=== PATIENT | male | born 1995 | race Hispanic/Latino ===

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

== ENCOUNTER 2017-04-13 10:10 | Emergency (ER) | payer OTHER ==
[~2017-04-13] VITALS: Ht 172.7 cm; Wt 61.4 kg
[2017-04-13 10:13] VITALS: BP 121/80; PULSE 92; RESP 14; O2SAT 99
--- NOTE | 2017-04-13 10:19 | ED.REPORT ---
HPI-General Illness Date of Service Apr 13, 2017 ED Provider: Dr. Grier The pt is a 22 y/o male with a hx of asthma who presents to the ED complaining of dehydration, onset yesterday after he walked 8 miles. Associated sx include headache, lightheadedness, nausea and subjective fever which resolved today. He also reports mild cough and congestion since last night. He denies vomiting , diarrhea, abdominal pain, chest pain, shortness of breath, loss of consciousness , neck pain and photophobia. Nursing Notes Stated Complaint: DEHYDRATED AND FEVER Chief Complaint: General Complaint Nursing Notes Reviewed: Yes Allergies: Coded Allergies: sulfamethoxazole (Verified Allergy, Intermediate, Rash,Itching,SOB, 12/25/16 ) trimethoprim (Verified Allergy, Intermediate, Rash,Itching,SOB, 04/17/16) Scheduled PRN Ibuprofen (Ibuprofen) 800 Mg Tablet 800 MG PO TID PRN PRN For Pain General Time Seen by MD: 10:43 Chief Complaint Other (dehydration) Hx Obtained From: Patient Arrived By: Walk-in Sudden in Onset?: Yes Onset Occurred: Yesterday Symptom Duration: Since onset Location: : Head Quality: Painful Severity: Current: Mild Severity: Maximum: Mild Recent Healthcare: No recent doctor visit Similar Sx Previous: No Past Medical History Past Medical History Bronchitis Reports: Asthma Past Surgical History None Smoking History Never Smoker Social History Alcohol Use: Denies alcohol use Drug Use: Denies drug use Other Social History: Lives with parents Ambulatory Status Independent Review of Systems Reports: dehydration Reports: congestion Full Review of Systems Constitutional: Reports: Fever (subjective, now resolved) Eyes: Denies: Photophobia Respiratory: Reports: Non-productive cough, Denies: Shortness of breath Cardiovascular: Denies: Chest pain GI: Reports: Nausea, Denies: Abdominal pain, Diarrhea, Vomiting Musculoskeletal: Denies: Neck pain Neurologic: Reports: Headache, Lightheaded, Denies: Change LOC Complete sys rev & neg: except as marked. Physical Exam Vital Signs Vital Signs Date Time Temp Pulse Resp B/P Pulse Ox O2 Delivery O2 Flow Rate FiO2 04/13/17 13:32 36.7 16 107/60 98 Room Air 04/13/17 10:13 36.9 92 14 121/80 99 Room Air Initial VS: Reviewed Head / Eyes: Atraumatic, Normocephalic Neck: Supple, Non-tender, Full range of motion Cardiovascular: Regular rate & rhythm, Heart sounds normal, Intact distal pulses Abdomen / GI: Soft, Non-tender, No guarding, No rebound, No distention Extremities: Vascular intact, Neuro intact, No swelling, No tenderness Skin: Warm, Dry, No cyanosis Neurologic: Alert, Oriented, Nonfocal General/Constitutional: Awake, Alert, No acute distress, Cooperative Respiratory / Chest: Atraumatic, Breath sounds = bilat, No respiratory distress , No rales, No rhonchi, No wheezing Slightly diminished breath sounds at the right base. Interpretation & Diagnostics Lab Results Interpretation Result Diagram: 04/13/17 1110 04/13/17 1110 Test 04/13/17 11:10 04/13/17 12:42 White Blood Count 5.9th/mm3 (3.8-10.1) Red Blood Count 5.04mil/mm3 (4.40-5.80) Hemoglobin 14.2g/dL (13.8-17.2) Hematocrit 41.3% (41.0-50.0) Mean Corpuscular Volume 81.9fL (81-100) Mean Corpuscular Hemoglobin 28.2pg (27.0-35.0) Mean Corpuscular Hemoglobin Concent 34.4% (32.0-37.0) Red Cell Distribution Width 12.7% (12.3-15.4) Platelet Count 201bil/L (150-400) Neutrophils (%) (Auto) 65.2% (40-74) Lymphocytes (%) (Auto) 20.8% (14-46) Monocytes (%) (Auto) 13.3% (4-12) Eosinophils (%) (Auto) 0.2% (0-5) Basophils (%) (Auto) 0.5% (0-3) Sodium Level 136mEq/L (134-144) Potassium Level 3.6mEq/L (3.5-5.2) Chloride Level 96mEq/L (97-108) Carbon Dioxide Level 23mmol/L (18-29) Blood Urea Nitrogen 20mg/dL (6-20) Creatinine 0.76mg/dL (0.76-1.27) Estimat Glomerular Filtration Rate 139mL/min (>59) Glucose Level 80mg/dL (60-99) Calcium Level 9.4mg/dL (8.5-10.1) Total Bilirubin 1.5mg/dL (0.0-1.2) Aspartate Amino Transf (AST/SGOT) 16U/L (0-50) Alanine Aminotransferase (ALT/SGPT) 16U/L (0-44) Alkaline Phosphatase 68U/L (25-150) Total Protein 8.0g/dL (6.4-8.4) Albumin 4.9g/dL (3.4-5.0) Hold Urine Received (Received) X-Ray Chest Interpretation Chest Xray Interpretation: IMPRESSION: No acute pulmonary process. Dictated by: Jessika Jackson M.D. on 04/13/2017 at 11:09 Approved by: Jessika Jackson M.D. on 04/13/2017 at 11:09 View: Portable, 1 view Interpretation / Wet Read by: Interpret - Radiologist Re-Eval/Medical Decision Med Decision/Clinical Course 22-year-old male presenting feeling dehydrated. He reports he went for a long walk in [place] yesterday without any hydration was feeling lightheaded now. He was given 1 L normal saline and felt much better. He reported a mild cough CXR is clear. Labs are unremarkable. Discharged home with return precautions. Time of Eval: 10:46 Re-Evaluation/Progress Note: Discussed the plan to do IV fluids and take a chest xray. The pt understands and agrees with the plan. All questions answered. Time of Eval: 12:59 Patient Status: Condition improved Re-Evaluation/Progress Note: Rechecked pt. Discussed lab results, imaging results, diagnosis and plan to discharge. Pt understands and agrees with the plan. F/U instruction and RTER warning given. All questions addressed. Counseled Regarding: Diagnosis, Lab results, Need for follow-up, When/why to return to ED Discharge & Departure Primary Impression: Dehydration Disposition: Home Discharge Condition All VS Reviewed: Yes Condition: Stable Patient Instructions: Dehydration (ED) Additional Instructions: Your lab results and imaging results are reassuring. Drink plenty of fluids, including drinks like Gatorade. Follow up with your primary care provider for further evaluation if needed. Return to the emergency department in case of lightheadedness, vomiting, or any new or concerning symptoms. Referrals: Venu Sanchez MD (PCP) Scribe Attestation Portions of this note were transcribed by Keyshawn Manning. I,, personally performed the history,physical exam and medical decision-making;I reviewed and confirmed the accuracy of the information in the transcribed note. Signed by Peewee Robles. 04/12/17 copies to: Venu Sanchez MD, Ben M MD Apr 13, 2017 10:19 Keyshawn Manning Apr 13, 2017 10:46
[2017-04-13] MEDS ORDERED: 0.9% Sodium Chloride 1,000 ML IV ONE (10:47)
[2017-04-13] MEDS ORDERED: Ondansetron 2 mg/mL 2 mL Inj IVPUSH PRN (10:50)
--- NOTE | 2017-04-13 11:11 | DRSVH ---
PROCEDURE: X-RAY CHEST ONE VIEW, PORTABLE ([id number]) INDICATIONS: cough TECHNIQUE: One view of the chest was acquired. COMPARISON: [facility], CR, XR CHEST 2VW, 11/06/2016, 10:15. [facility], CR, XR CHEST 2VW, 04/17/2016, 23:30. FINDINGS: Surgical changes and devices: None. Lungs and pleura: No pleural effusions or pneumothorax. Lungs are clear. Mediastinum: Mediastinal contours appear normal. Heart size is normal. Bones and chest wall: No suspicious bony lesions. Overlying soft tissues appear unremarkable. IMPRESSION: No acute pulmonary process. Dictated by: Jessika Jackson M.D. on 04/13/2017 at 11:09 Approved by: Jessika Jackson M.D. on 04/13/2017 at 11:09
[2017-04-13 11:19] LABS: BASOPHILS % (AUTO) 0.5 % (0-3); EOSINOPHILS % (AUTO) 0.2 % (0-5); MONOCYTES % (AUTO) 13.3 % (4-12); Mean Corpuscular Hemoglobin 28.2 pg (27.0-35.0); Mean Corpuscular Volume 81.9 fL (81-100); NEUTROPHILS % (AUTO) 65.2 % (40-74); Platelet Count 201 bil/L (150-400)
[2017-04-13 13:32] VITALS: BP 107/60; RESP 16; O2SAT 98
== END 2017-04-13 13:34 | disposition home or self-care (01) ==
LOC: SED 10:10
DX: E86.0 Dehydration (principal); R51 Headache; R42 Dizziness and giddiness; J45.909 Unspecified asthma, uncomplicated; Z88.1 Allergy status to other antibiotic agents
CPT/HCPCS: 36415; 71010; 80053; 85025; 96361; 96374; 96375; 99284; J1885; J2405; J7030